=== PATIENT | male | born 1950 | race Caucasian/White ===

== ENCOUNTER 2017-07-17 18:25 | Observation (INO) | payer MEDICARE, BC, OTHER ==
[~2017-07-17] VITALS: Ht 188 cm; Wt 111.2 kg
[~2017-07-17 18:25] MED LIST: AMBIEN10 M1 PO; AMLODIPINE BESYL5 MG PO; ATORVASTATIN CA20 M1 PO; BYSTOLIC10 M1 PO; COUMADIN7.5 M1 PO; DOCUSATE SODIU100 M2 PO; GABAPENTIN400 M3 PO; LEVOTHYROXINE100 MC1 PO; LEVOTHYROXINE75 MC3 PO; LISINOPRIL10 M1 PO; MULTIVITAMINS1 EAC6 PO; NORVASC5 M2 PO; POTASSIUM CHLO20 ME3 PO; PRINIVIL20 M1 PO; RISPERIDONE2 M1 PO; RISPERIDONE3 M1 PO; TRULICITY1.5 MG/0.5 SQ; ZOLOFT100 M1 PO; ZOLPIDEM TARTRA10 M2 PO
[2017-07-17 19:01] LABS: BASO % 0.2 % (0-2); EOS % 1.2 % (0-7); EOSINOPHIL ABSOLUTE COUNT 0.1 tho/cmm (0.0-0.7); HGB-HEMOGLOBIN 12.1 gm/dl (13.5-17.0); IMMATURE GRANULOCYTES ABSOLUTE 0.02 tho/cmm (0-0.03); IMMATURE GRANULOCYTES PERCENT 0.2 % (0-0.3); LYMPH % 3.6 % (20-45); LYMPH ABSOLUTE COUNT 0.3 tho/cmm (0.8-4.5); MCH (MEAN CORPUSCULAR HGB) 26.8 pg (28.0-32.0); MCHC MEAN CORPUSCULAR HGB CONC 32.7 % (32.0-36.0); MEAN PLATELET VOLUME 11.4 cmc (9.4-12.4); MONO % 6.3 % (0-12); MONOCYTE ABSOLUTE COUNT 0.5 tho/cmm (0.0-1.2); NEUTROPHIL ABSOLUTE COUNT 7.4 tho/cmm (1.6-8.0); NEUTROPHIL-AUTOMATED 7.4 tho/cmm (1.6-8.0); NEUTROPHILS % 88.5 % (40-80); PLATELET COUNT 135 tho/cmm (150-450); RED BLOOD COUNT 4.51 mil/cmm (4.40-5.70); RED CELL DISTRIBUTION WIDTH 14.4 % (12.4-16.4); WHITE BLOOD COUNT 8.4 tho/cmm (4.0-10.0)
[2017-07-17 19:05] LABS: INR 2.5 INR (0.9-1.1)
[2017-07-17 19:19] LABS: ALB/GLOB RATIO 1.1 (0.8-2.0); ALBUMIN 3.8 g/dl (3.5-5.0); ALKALINE PHOSPHATASE 86 U/L (33-138); ALT/SGPT 22 U/L (12-78); ANION GAP 12 mmol/L (0-20); AST/SGOT 18 U/L (10-40); BILIRUBIN,TOTAL 0.8 mg/dl (0.0-1.5); BLOOD UREA NITROGEN 13 mg/dl (6-24); CALCIUM 8.6 mg/dl (8.5-10.5); CARBON DIOXIDE-VENOUS 24 mmol/L (22-32); CHLORIDE 105 mmol/l (96-110); CREATININE 1.11 mg/dl (0.60-1.30); GLUCOSE 171 mg/dL (70-110); POTASSIUM 3.4 mmol/L (3.7-5.1); SODIUM 138 mmol/L (135-145); eGFR VALUE FOR BLACK 78 mL/Min
[2017-07-17 19:22] LABS: URINE BILIRUBIN NEGATIVE (NEG); URINE BLOOD MODERATE (NEG); URINE GLUCOSE (UA) NEGATIVE (NEG); URINE KETONE NEGATIVE (NEG); URINE LEUKOCYTE ESTERASE POSITIVE (NEG); URINE NITRITE NEGATIVE (NEG); URINE PROTEIN MODERATE (NEG)
[2017-07-17 19:23] LABS: URINE APPEARANCE HAZY; URINE COLOR YELLOW
[2017-07-17 19:23] LABS: TSH-THYROID STIMULATING HORM. 1.01 uIU/ml (0.40-3.80)
[2017-07-17 19:27] LABS: PROCALCITONIN <0.05 ng/ml (0.05-0.09)
[2017-07-17 19:29] LABS: URINE AMORPHOUS 1+; URINE EPITHELIAL CELLS RARE /[HPF] (0-10); URINE WBC RARE /[HPF] (0-5)
[2017-07-18 06:29] LABS: BASO % 0.2 % (0-2); EOS % 4.4 % (0-7); EOSINOPHIL ABSOLUTE COUNT 0.3 tho/cmm (0.0-0.7); HCT-HEMATOCRIT 34.1 % (36.0-53.5); HGB-HEMOGLOBIN 10.9 gm/dl (13.5-17.0); IMMATURE GRANULOCYTES ABSOLUTE 0.01 tho/cmm (0-0.03); IMMATURE GRANULOCYTES PERCENT 0.2 % (0-0.3); LYMPH % 9.3 % (20-45); LYMPH ABSOLUTE COUNT 0.5 tho/cmm (0.8-4.5); MCH (MEAN CORPUSCULAR HGB) 26.3 pg (28.0-32.0); MCV (MEAN CELL VOLUME) 82.2 fl (82.0-96.0); MEAN PLATELET VOLUME 10.8 cmc (9.4-12.4); MONO % 7.2 % (0-12); MONOCYTE ABSOLUTE COUNT 0.4 tho/cmm (0.0-1.2); NEUTROPHIL ABSOLUTE COUNT 4.5 tho/cmm (1.6-8.0); NEUTROPHIL-AUTOMATED 4.5 tho/cmm (1.6-8.0); NEUTROPHILS % 78.7 % (40-80); PLATELET COUNT 118 tho/cmm (150-450); RED BLOOD COUNT 4.15 mil/cmm (4.40-5.70); RED CELL DISTRIBUTION WIDTH 14.6 % (12.4-16.4); WHITE BLOOD COUNT 5.7 tho/cmm (4.0-10.0)
[2017-07-18 06:33] LABS: INR 2.5 INR (0.9-1.1); PROTHROMBIN TIME 30.6 SECONDS (9.0-13.6)
[2017-07-18 06:59] LABS: ANION GAP 7 mmol/L (0-20); BLOOD UREA NITROGEN 13 mg/dl (6-24); CALCIUM 8.2 mg/dl (8.5-10.5); CHLORIDE 108 mmol/l (96-110); CREATININE 1.02 mg/dl (0.60-1.30); GLUCOSE 89 mg/dL (70-110); POTASSIUM 3.2 mmol/L (3.7-5.1); SODIUM 139 mmol/L (135-145); eGFR VALUE FOR BLACK 87 mL/Min
[2017-07-18 11:24] LABS: CARBON DIOXIDE-VENOUS 27 mmol/L (21-33)
[2017-07-18] MEDS ORDERED: TYLENOL325 M2 PO (12:14)
[2017-07-18] MEDS ORDERED: MUCINEX600 M1 PO (12:17)
[2017-07-18] MEDS ORDERED: MIRALAX17 G2 PO (12:19)
[2017-07-18] MEDS ORDERED: NITROGLYCERIN0.4 M2 SL (13:27)
[2017-07-18] MEDS ORDERED: BUPROPION HCL150 M3 PO (13:27)
== END 2017-07-18 14:45 ==
LOC: EDMED → EDBD 18:25 → EDMED 18:25 → EMR2 20:40 → 5EB 20:40 → EMR2 20:40 → 5EB 21:30
PROVIDERS: Emergency Medicine; Registered Nurse; ADMIT Internal Medicine
DX: J00 Acute nasopharyngitis [common cold] (principal); R53.1 Weakness; E87.6 Hypokalemia; D69.6 Thrombocytopenia, unspecified; J98.11 Atelectasis; E03.9 Hypothyroidism, unspecified; E11.9 Type 2 diabetes mellitus without complications; I10 Essential (primary) hypertension; R09.02 Hypoxemia; R74.0 Nonspecific elevation of levels of transaminase and lactic acid dehydrogenase [LDH]; G14 Postpolio syndrome; F42.9 Obsessive-compulsive disorder, unspecified; F84.0 Autistic disorder; F32.9 Major depressive disorder, single episode, unspecified; Z79.01 Long term (current) use of anticoagulants; Z79.899 Other long term (current) drug therapy; Z88.5 Allergy status to narcotic agent; Z91.041 Radiographic dye allergy status; Z87.891 Personal history of nicotine dependence
CPT/HCPCS: G0378; G8978-GP-CJ; G8979-GP-CI; G8980-GP-CI; J1815; J2543; J7030